=== PATIENT | male | born 1980 | race Caucasian/White ===

== ENCOUNTER 2022-06-17 08:47 | Emergency (ER) | payer MEDICARE, OTHER ==
[2022-06-17] MEDS ORDERED: TRIAMCINOLONE A80 GM TP (11:56)
== END 2022-06-17 12:19 | disposition home or self-care (01) ==
LOC: ER1 08:47
DX: L50.0 Allergic urticaria (principal); E11.9 Type 2 diabetes mellitus without complications; Z88.1 Allergy status to other antibiotic agents; Z88.8 Allergy status to other drugs, medicaments and biological substances; F17.210 Nicotine dependence, cigarettes, uncomplicated
CPT/HCPCS: 82962; 96374; 96375; 99283; J1100; J1200